=== PATIENT | male | born 1960 | race Caucasian/White ===

== ENCOUNTER 2016-06-22 10:53 | Emergency (ER) | payer OTHER ==
[~2016-06-22] VITALS: Ht 22.9 cm; Wt 88.0 kg
[~2016-06-22 10:53] MED LIST: TOPR50TA PO
[2016-06-22 10:57] VITALS: BP 154/116; PULSE 81; RESP 16; TEMP 98.7; O2SAT 98
[2016-06-22] MEDS ORDERED: ASPI81CH CHEW (11:04)
[2016-06-22] MEDS ORDERED: METO50TA PO (11:11)
--- NOTE | 2016-06-22 11:17 | PD ---
HPI Chief Complaint: Medication Refill Request Time Seen by Provider: 11:12 Travel History International Travel<30 days: No Contact w/Intl Traveler<30days: No Traveled to known affect area: No History of Present Illness HPI Patient is a 56-year-old male presenting with chief complaint of hypertension medication refill. He has been on metoprolol 50 mg twice a day supple his blood pressure for the last month. He was previously on antihypertensives and was unable to see a PCP and was off them and was not feeling well and was restarted one month ago. He denies any pain, shortness of breath, headaches or dizziness. He states that he is currently taking the medication and his blood pressure is well-controlled, typically around 140s over low 100s. He states that this has always been his best readings went on antihypertensives. He takes daily aspirin. He has no complaints at this time. PFSH Past Medical History Hx Anticoagulant Therapy: Yes (81 MG. ASA DAILY) Cardiovascular Problems: Yes (HTN) Hypertension: Yes Influenza Vaccination: No Past Surgical History Neurologic Surgery: Yes (FOR EPILEPSY) Social History Alcohol Use: Yes (DAILY) Tobacco Use: Yes (1PPD) Substance Use: No Allergies-Medications (Allergen,Severity, Reaction): Coded Allergies: No Known Allergies (Unverified , 06/22/16) Reported Meds & Prescriptions Reported Meds & Active Scripts Active Toprol XL (Metoprolol Succinate) 50 Mg Tab 50 Mg PO BID Reported Aspirin 81 Mg Chew 81 Mg CHEW DAILY Review of Systems HENT: No: Headaches, Vertigo, Lightheadedness Cardiovascular: No: Chest Pain or Discomfort, Irregular Rhythm, Edema Respiratory: No: Shortness of Breath Neurologic: No: Weakness, Dizziness, Syncope Physical Exam Narrative GENERAL: Well-developed and well-nourished adult male in no acute distress. SKIN: Warm and dry. Good turgor without tenting. HEAD: Normocephalic and atraumatic. EYES: PERRL bilaterally, 5mm. EOMI bilaterally. No injection or icterus present. No proptosis. Lids without edema or erythema. NECK: Supple, no midline tenderness, crepitus or step-offs. Trachea midline, no JVD. No cervical or facial lymphadenopathy. CARDIOVASCULAR: Regular rate and rhythm without murmurs, rubs, clicks or gallops. Radial and posterior tibial pulses 2+ bilaterally. No pedal edema. RESPIRATORY: Coarse breath sounds diffusely without rhonchi, rales or wheezing. No distress or use of accessory muscles. MUSCULOSKELETAL: No gait disturbances. Patient freely moving all four extremities spontaneously. Extremities without clubbing, cyanosis, or edema. No obvious deformities. NEUROLOGIC: CN II-XII grossly intact. Awake and alert. Motor grossly within normal limits. Normal speech. PSYCHIATRIC: Appropriate mood and affect; insight and judgment normal. Data Data Last Documented VS Vital Signs Date Time Temp Pulse Resp B/P Pulse Ox O2 Delivery O2 Flow Rate FiO2 06/22/16 10:57 98.7 81 16 154/116 98 MDM Medical Decision Making Medical Screen Exam Complete: Yes Emergency Medical Condition: Yes Differential Diagnosis Medication refill versus hypertension versus hypertensive urgency Narrative Course Patient is a 56-year-old male tobacco use with a history of essential hypertension presenting with chief complaint of medication refill. He has been on Toprol 50 mg twice a day for approximately one month and has had no symptoms. He feels that this is well-controlled as his BP approximately 140/ 100 which is the best he has had a controlled on several years. Blood pressure currently is elevated from this however she is asymptomatic and typically is not under excellent control no additional emergent workup is indicated. Patient was given metoprolol refill and recommend smoking cessation. He is establishing with PCP in the next 3 weeks and recommended he discuss medication adjustments for better control at that time.See discharge paperwork for further instructions. The plan was discussed with the patient who acknowledged their understanding and agreement. Reinforced the follow-up with primary care is critically important. Patient instructed on emergent conditions that should prompt return to ED. Diagnosis Primary Impression: Hypertension Qualified Code: I10 - Essential hypertension Additional Impression: Tobacco dependence Patient Instructions: Chronic Hypertension (ED), Cigarette Smoking and Your Health (GEN), General Instructions, How to Stop Smoking (ED) Additional Instructions: Take medications as prescribed Recommend limiting salt/sodium intake to 2 g daily Recommend stop smoking as this will contribute to poor heart, vascular and lung health Follow-up with PCP as scheduled Return to the ED for any worsening of symptoms including chest pain, shortness of breath, headaches or dizziness Med/Other Pt SpecificInfo: Prescription(s) given Scripts Metoprolol Tartrate 50 Mg Tab50 Mg PO BID #60 TAB Ref 0 Prov:Maxx Quinn MD 06/22/16 Disposition: 01 DISCHARGE HOME Condition: Stable Elijah Hauser III Jun 22, 2016 11:17
== END 2016-06-22 11:22 | disposition home or self-care (01) ==
LOC: PHEFT 10:53
DX: I10 Essential (primary) hypertension (principal); F17.210 Nicotine dependence, cigarettes, uncomplicated; Z79.82 Long term (current) use of aspirin
CPT/HCPCS: 99281